=== PATIENT | male | born 1970 | race Two or more races ===

== ENCOUNTER 2022-09-26 09:04 | Emergency (ER) | payer BC, OTHER ==
[~2022-09-26] VITALS: Ht 167.6 cm; Wt 72.6 kg
--- NOTE | 2022-09-26 09:44 | NUR ---
rapid influenza and covid swab taken sent to lab
--- NOTE | 2022-09-26 09:49 | NUR ---
UNABLE TO PROVIDE URINE SAMPLE AT THIS TIME
--- NOTE | 2022-09-26 10:00 | NUR ---
URINE COLLECTED AND SENT TO LAB
[2022-09-26 10:11] LABS: BASOPHILS % (AUTO) 0.4 % (0.0-2.0); EOSINOPHILS % (AUTO) 0.3 % (0.0-6.0); HEMATOCRIT 42 % (39-51); HEMOGLOBIN 14.2 g/dL (13.5-17.5); LYMPHOCYTES # (AUTO) 0.6 K/uL (0.8-4.8); LYMPHOCYTES % (AUTO) 10.5 % (20.0-44.0); MEAN CORPUSCULAR HGB CONC 34 g/dl (31.0-36.0); MEAN CORPUSCULAR VOLUME 98 fL (80-96); MONOCYTES # (AUTO) 0.4 K/uL (0.1-1.30); MONOCYTES % (AUTO) 7.7 % (2.0-12.0); NEUTROPHILS # (AUTO) 4.7 K/uL (1.8-8.9); NEUTROPHILS % (AUTO) 81.1 % (43.0-81.0); PLATELET COUNT (AUTO) 139 K/uL (150-450); RED BLOOD CELL COUNT(AUTO) 4.27 MIL/uL (4.5-6.0); WHITE BLOOD COUNT (AUTO) 5.8 K/uL (4.3-11.0)
[2022-09-26 10:22] LABS: BILIRUBIN,URINE 2+ (NEGATIVE); COLOR,URINE YELLOW (YELLOW); LEUKOCYTE ESTERASE ,URINE NEGATIVE (NEGATIVE); NITRITE, URINE NEGATIVE (NEGATIVE); PROTEIN,URINE 1+ mg/dl (NEGATIVE); UGLUCOSE NEGATIVE (NEGATIVE)
[2022-09-26 10:50] LABS: ALANINE AMINOTRANSFERASE 124 U/L (12-78); ALBUMIN 4.2 g/dL (3.4-5.0); ALCOHOL, BLOOD 90 mg/dL (0-0); ALKALINE PHOSPHATASE 70 U/L (46-116); ASPARTATE AMINOTRANSFERASE 164 U/L (15-37); BILIRUBIN,DIRECT 0.2 mg/dL (0.0-0.2); BILIRUBIN,TOTAL 0.4 mg/dL (0.2-1.0); CALCIUM, SERUM 8.8 mg/dL (8.5-10.1); CARBON DIOXIDE 22 mmol/L (21-32); CHLORIDE 101 mmol/L (98-107); GLUCOSE 108 mg/dL (74-106); POTASSIUM 3.5 mmol/L (3.5-5.1); SODIUM SERUM 138 mmol/L (136-145); TOTAL PROTEIN, SERUM 7.6 g/dL (6.4-8.2); UREA NITROGEN, BLOOD 13 mg/dL (7-18)
[2022-09-26 11:01] LABS: ACETAMINOPHEN 0 ug/ml (10-30)
[2022-09-26 12:14] LABS: BACTERIA,URINE Few /HPF (None Seen); MUCUS,URINE Moderate /LPF (None Seen); RBC,URINE 0-2 /HPF (0-2); SQUAMOUS EPITHELIAL CELL,UR Few /HPF (None Seen); URINE AMORPHOUS URATE Moderate /HPF (None Seen); WBC,URINE 0-2 /HPF (0-3)
--- NOTE | 2022-09-26 13:30 | NUR ---
Patient discharged to home in stable condition. Written and verbal after care instructions given. Patient verbalizes understanding of instruction.
[2022-09-26 17:13] VITALS: BP 135/90
== END 2022-09-26 13:50 | disposition home or self-care (01) ==
LOC: ER 09:27
DX: R07.9 Chest pain, unspecified (principal); M79.10 Myalgia, unspecified site; Z20.822 Contact with and (suspected) exposure to COVID-19; F10.20 Alcohol dependence, uncomplicated; Y90.4 Blood alcohol level of 80-99 mg/100 ml; R82.5 Elevated urine levels of drugs, medicaments and biological substances
CPT/HCPCS: 99285; 93005 ×2; 87804; 71045; 85025; 80048; 80076; 81001; 36415; 84484 ×2; 87426; 80143; 80320; 80307; C9803; G0480

== ENCOUNTER 2023-07-10 04:13 | Emergency (ER) | payer BC, OTHER ==
[2023-07-10] MEDS ORDERED: CHLO25CA22 PO (17:44)
== END 2023-07-10 06:14 | disposition left against medical advice (07) ==
LOC: ER 04:31
DX: Z53.21 Procedure and treatment not carried out due to patient leaving prior to being seen by health care provider (principal)

== ENCOUNTER → 2023-07-10 | Emergency (ER) | payer BC, OTHER ==
[~2023-07-10] VITALS: Ht 167.6 cm; Wt 68.0 kg
[~2023-07-10] MED LIST: CHLO25CA22 PO; CHLORDIAZEPOXIDE HCL 25 MG CAPSULE ONE; CHLORDIAZEPOXIDE HCL 25 MG CAPSULE PO ONE; IV NS 0.9% 1,000 ML IV ONE; LORAZEPAM INJ 2 MG/ML VIAL IV ONE; LORAZEPAM INJ 2 MG/ML VIAL ONE
[2023-07-10 15:49] LABS: BASOPHILS # (AUTO) 0.1 K/uL (0.0-0.2); BASOPHILS % (AUTO) 1.5 % (0.0-2.0); EOSINOPHILS % (AUTO) 0.1 % (0.0-6.0); HEMATOCRIT 43 % (39-51); HEMOGLOBIN 14.4 g/dL (13.5-17.5); LYMPHOCYTES # (AUTO) 1.5 K/uL (0.8-4.8); LYMPHOCYTES % (AUTO) 23.9 % (20.0-44.0); MEAN CORPUSCULAR HEMOGLOBIN 33 PG (26.0-33.0); MEAN CORPUSCULAR HGB CONC 34 g/dl (31.0-36.0); MEAN CORPUSCULAR VOLUME 97 fL (80-96); MONOCYTES # (AUTO) 0.3 K/uL (0.1-1.30); MONOCYTES % (AUTO) 5.3 % (2.0-12.0); NEUTROPHILS # (AUTO) 4.3 K/uL (1.8-8.9); NEUTROPHILS % (AUTO) 69.2 % (43.0-81.0); PLATELET COUNT (AUTO) 220 K/uL (150-450); RED BLOOD CELL COUNT(AUTO) 4.41 MIL/uL (4.5-6.0); RED CELL DISTRIBUTION WIDTH 14.7 % (11.5-15.0); WHITE BLOOD COUNT (AUTO) 6.2 K/uL (4.3-11.0)
[2023-07-10 15:49] LABS: APPEARANCE,URINE CLEAR (CLEAR); BILIRUBIN,URINE 1+ (NEGATIVE); BLOOD, URINE NEGATIVE Ery/uL (NEGATIVE); COLOR,URINE YELLOW (YELLOW); KETONES,URINE 3+ mg/dL (NEGATIVE); LEUKOCYTE ESTERASE ,URINE NEGATIVE (NEGATIVE); NITRITE, URINE NEGATIVE (NEGATIVE); PROTEIN,URINE 2+ mg/dl (NEGATIVE); UGLUCOSE NEGATIVE (NEGATIVE)
[2023-07-10 16:07] LABS: ADD URINE CULTURE NO; AMPHETAMINE, URINE NEGATIVE (NEGATIVE); BARBITURATE, URINE NEGATIVE (NEGATIVE); COCCAINE, URINE NEGATIVE (NEGATIVE); OPIATE, URINE NEGATIVE (NEGATIVE); PHENCYCLIDINE SCREEN,URINE NEGATIVE (NEGATIVE); RBC,URINE 0-2 /HPF (0-2); WBC,URINE 0-2 /HPF (0-3)
[2023-07-10 16:08] LABS: BACTERIA,URINE RARE /HPF (None Seen); MUCUS,URINE Few /LPF (None Seen)
[2023-07-10 16:10] LABS: BENZODIAZEPINE, URINE POSITIVE (NEGATIVE); CANNABINOID, URINE POSITIVE (NEGATIVE)
[2023-07-10 16:18] LABS: CALCIUM, SERUM 9.6 mg/dL (8.5-10.1); CARBON DIOXIDE 16 mmol/L (21-32); CHLORIDE 96 mmol/L (98-107); CREATININE 0.9 mg/dL (0.6-1.3); GLUCOSE 78 mg/dL (74-106); POTASSIUM 3.5 mmol/L (3.5-5.1); SODIUM SERUM 136 mmol/L (136-145); UREA NITROGEN, BLOOD 16 mg/dL (7-18)
[2023-07-10 16:25] LABS: ALANINE AMINOTRANSFERASE 45 U/L (12-78); ALBUMIN 4.5 g/dL (3.4-5.0); ALCOHOL, BLOOD 101 mg/dL (0-10); ALKALINE PHOSPHATASE 81 U/L (46-116); ASPARTATE AMINOTRANSFERASE 50 U/L (15-37); BILIRUBIN,DIRECT 0.3 mg/dL (0.0-0.2); BILIRUBIN,TOTAL 0.9 mg/dL (0.2-1.0); MAGNESIUM 1.7 mg/dL (1.8-2.4); TOTAL PROTEIN, SERUM 8.3 g/dL (6.4-8.2)
[2023-07-10 16:26] LABS: ACETAMINOPHEN 0 ug/ml (10-30); SALICYLATE < 2.8 mg/dL (2.8-20.0)
[2023-07-10 18:09] VITALS: BP 135/85; TEMP 98; O2SAT 98
== END | disposition home or self-care (01) ==
LOC: ER 14:48
DX: F10.139 Alcohol abuse with withdrawal, unspecified (principal); Y90.5 Blood alcohol level of 100-119 mg/100 ml
CPT/HCPCS: 99285; 96374; 96361; 85025; 80048; 80076; 83735; 81001; 36415; 80143; 80320; 80307; J2060; J7030; G0480

== ENCOUNTER 2024-05-14 16:27 | Inpatient (IN) | payer BC, OTHER ==
[~2024-05-14] VITALS: Ht 167.6 cm; Wt 81.6 kg
[~2024-05-14 16:27] MED LIST changes: -CHLORDIAZEPOXIDE HCL 25 MG CAPSULE ONE; -CHLORDIAZEPOXIDE HCL 25 MG CAPSULE PO ONE; -IV NS 0.9% 1,000 ML IV ONE; -LORAZEPAM INJ 2 MG/ML VIAL IV ONE; -LORAZEPAM INJ 2 MG/ML VIAL ONE
[2024-05-14 17:56] LABS: BASOPHILS % (AUTO) 0.2 % (0.0-2.0); HEMATOCRIT 46 % (39-51); HEMOGLOBIN 15.3 g/dL (13.5-17.5); LYMPHOCYTES # (AUTO) 1.4 K/uL (0.8-4.8); LYMPHOCYTES % (AUTO) 9.1 % (20.0-44.0); MEAN CORPUSCULAR HEMOGLOBIN 31 PG (26.0-33.0); MEAN CORPUSCULAR HGB CONC 33 g/dl (31.0-36.0); MEAN CORPUSCULAR VOLUME 94 fL (80-96); MONOCYTES # (AUTO) 0.5 K/uL (0.1-1.30); MONOCYTES % (AUTO) 3.4 % (2.0-12.0); NEUTROPHILS # (AUTO) 13.1 K/uL (1.8-8.9); NEUTROPHILS % (AUTO) 87.3 % (43.0-81.0); PLATELET COUNT (AUTO) 280 K/uL (150-450); RED BLOOD CELL COUNT(AUTO) 4.91 MIL/uL (4.5-6.0); RED CELL DISTRIBUTION WIDTH 14.7 % (11.5-15.0)
[2024-05-14 18:07] LABS: CALCIUM, SERUM 10.1 mg/dL (8.5-10.1); CARBON DIOXIDE 14 mmol/L (21-32); CHLORIDE 96 mmol/L (98-107); CREATININE 1.6 mg/dL (0.6-1.3); GLUCOSE 85 mg/dL (74-106); POTASSIUM 4.1 mmol/L (3.5-5.1); SODIUM SERUM 138 mmol/L (136-145); UREA NITROGEN, BLOOD 27 mg/dL (7-18)
[2024-05-14] MEDS ORDERED: CEFTRIAXONE 1GM BAG (ER ONLY) 50 ML IV ONE (19:58)
[2024-05-14] MEDS: CEFTRIAXONE 1 G in IV D5W 50 ML IV ONE (20:12)
[2024-05-14] MEDS: IV NS 0.9% 1,000 ML BAG IV ONE (20:12)
[2024-05-14] MEDS ORDERED: KETOROLAC TROMETHAMINE 15 MG/ML VIAL ONE (20:14)
[2024-05-14] MEDS: KETOROLAC TROMETHAMINE 15 MG/ML VIAL IV ONE (20:17)
[2024-05-14] MEDS ORDERED: AZITHROMYCIN 500 MG VIAL ONE (20:34)
[2024-05-14 20:46] LABS: APPEARANCE,URINE CLEAR (CLEAR); BILIRUBIN,URINE NEGATIVE (NEGATIVE); BLOOD, URINE NEGATIVE Ery/uL (NEGATIVE); COLOR,URINE YELLOW (YELLOW); KETONES,URINE 1+ mg/dL (NEGATIVE); LEUKOCYTE ESTERASE ,URINE NEGATIVE (NEGATIVE); NITRITE, URINE NEGATIVE (NEGATIVE); PROTEIN,URINE TRACE mg/dl (NEGATIVE); UGLUCOSE NEGATIVE (NEGATIVE); UROBILINOGEN,URINE 0.2 EU/dL (0.2)
[2024-05-14] MEDS: AZITHROMYCIN 500 MG in IV D5W 250 ML IV ONE (20:46)
[2024-05-14] MEDS ORDERED: MAG HYDROX/AL HYDROX/SIMETH 30 ML UDC ONE (20:55)
[2024-05-14] MEDS ORDERED: FAMOTIDINE (20 MG) 20 MG TABLET ONE (20:56)
[2024-05-14] MEDS: FAMOTIDINE (20 MG) 20 MG TABLET PO ONE (20:58)
[2024-05-14] MEDS: MAG HYDROX/AL HYDROX/SIMETH 30 ML UDC PO ONE (20:58)
[2024-05-14 21:13] LABS: ADD URINE CULTURE YES; BACTERIA,URINE 2+ /HPF (None Seen); RBC,URINE NONE SEEN /HPF (0-2); WBC,URINE 0-2 /HPF (0-3)
[2024-05-14 21:14] LABS: FINE GRANULAR CASTS,URINE Few /LPF (None Seen)
[2024-05-14 21:31] LABS: LACTIC ACID 8.7 mmol/L (0.4-2.0)
[2024-05-14] MEDS ORDERED: IOHEXOL-350 100 ML VIAL IV ONE (21:39)
[2024-05-14] MEDS ORDERED: IV NS 0.9% 250 ML IV ONE (21:39)
[2024-05-14] MEDS ORDERED: CT SWABBABLE VALVE TRANS SET 1 EA INFUS.SET MC ONE (21:40)
[2024-05-14] MEDS: OMEPRAZOLE 20 MG CAPSULE.DR PO STA (21:41)
[2024-05-14] MEDS ORDERED: MAGNESIUM HYDROXIDE 30 ML UDC PO PRN (22:30)
[2024-05-14] MEDS ORDERED: Z GUARD REMEDY 4 OZ OINT TP PRN (22:30)
[2024-05-14] MEDS ORDERED: MORPHINE SULFATE INJ 4 MG/ML DISP.SYRIN ONE (22:31)
[2024-05-14] MEDS: ONDANSETRON HCL/PF 4 MG/2 ML VIAL IVP ONE (22:36)
[2024-05-14] MEDS: MORPHINE SULFATE INJ 2 MG/ML DISP.SYRIN IV ONE (22:36)
[2024-05-15] VITALS (7 sets, daily range): BP systolic 124–145; BP diastolic 81–97; TEMP 97.7–98.2; O2SAT 99–100
[2024-05-15 00:10] LABS: BILIRUBIN,DIRECT 0.1 mg/dL (0.0-0.2); BILIRUBIN,TOTAL 0.5 mg/dL (0.2-1.0)
[2024-05-15] MEDS: IV NS 0.9% 1,000 ML IV PRN (01:12)
[2024-05-15] MEDS: ENOXAPARIN SODIUM 40 MG/0.4 ML DISP.SYRIN SQ SCH (01:18)
[2024-05-15] MEDS: ACETAMINOPHEN 325 MG TABLET PO PRN (03:10)
[2024-05-15] MEDS: TRAMADOL HCL 50 MG TABLET PO PRN (05:29)
[2024-05-15] MEDS: PANTOPRAZOLE 40 MG TABLET.DR PO SCH (07:35)
[2024-05-15] MEDS ORDERED: ACET-73 PO (08:52)
[2024-05-15] MEDS ORDERED: GABA600T12 PO (08:52)
[2024-05-15] MEDS ORDERED: CYCL10TA9 PO (08:52)
[2024-05-15] MEDS ORDERED: METH750T3 PO (08:52)
[2024-05-15] MEDS ORDERED: OMEP40CA21 PO (08:52)
[2024-05-15] MEDS ORDERED: METHOCARBAMOL (750MG) 750 MG TABLET PO PRN (11:00)
[2024-05-15] MEDS ORDERED: CYCLOBENZAPRINE 10 MG TABLET PO PRN (11:00)
[2024-05-15] MEDS ORDERED: CHLORDIAZEPOXIDE HCL 25 MG CAPSULE PO SCH (12:00)
[2024-05-15] MEDS: HYDROCODONE/APAP 5/325MG TABLET PO PRN (12:49)
[2024-05-15] MEDS: GABAPENTIN 300 MG CAPSULE PO SCH (13:54)
[2024-05-15] MEDS: ONDANSETRON HCL/PF 4 MG/2 ML VIAL IVP PRN (20:28)
[2024-05-15] MEDS: CEFTRIAXONE 1 G in IV D5W 50 ML IV SCH (20:28)
[2024-05-15] MEDS: AZITHROMYCIN 500 MG in IV D5W 250 ML IV SCH (20:29)
[2024-05-15] MEDS: ZOLPIDEM TARTRATE 5 MG TABLET PO PRN (21:40)
[2024-05-16 04:00] VITALS: BP 142/84; TEMP 97.9; O2SAT 99
[2024-05-16 08:00] VITALS: BP 122/70; TEMP 97.9; O2SAT 99
[2024-05-16 08:35] LABS: CALCIUM, SERUM 8.3 mg/dL (8.5-10.1); CREATININE 0.8 mg/dL (0.6-1.3); POTASSIUM 3.3 mmol/L (3.5-5.1)
[2024-05-16 09:51] LABS: BASOPHILS % (AUTO) 0.5 % (0.0-2.0); EOSINOPHILS % (AUTO) 0.2 % (0.0-6.0); HEMATOCRIT 35 % (39-51); LYMPHOCYTES # (AUTO) 1.5 K/uL (0.8-4.8); LYMPHOCYTES % (AUTO) 25.9 % (20.0-44.0); MEAN CORPUSCULAR HEMOGLOBIN 32 PG (26.0-33.0); MEAN CORPUSCULAR HGB CONC 35 g/dl (31.0-36.0); MEAN CORPUSCULAR VOLUME 93 fL (80-96); MONOCYTES # (AUTO) 0.4 K/uL (0.1-1.30); MONOCYTES % (AUTO) 7.9 % (2.0-12.0); NEUTROPHILS # (AUTO) 3.7 K/uL (1.8-8.9); NEUTROPHILS % (AUTO) 65.5 % (43.0-81.0); PLATELET COUNT (AUTO) 180 K/uL (150-450); RED BLOOD CELL COUNT(AUTO) 3.73 MIL/uL (4.5-6.0); RED CELL DISTRIBUTION WIDTH 14.4 % (11.5-15.0); WHITE BLOOD COUNT (AUTO) 5.7 K/uL (4.3-11.0)
[2024-05-16] MEDS: NICOTINE PATCH (21MG) 21 MG PATCH.TD24 TD SCH (10:09)
[2024-05-16] MEDS: POTASSIUM CHLORIDE 20 MEQ TAB.PRT.SR PO ONE (10:09)
[2024-05-16 16:00] VITALS: BP 152/91; TEMP 98.4; O2SAT 100
[2024-05-16] MEDS: QUETIAPINE FUMARATE 100 MG TABLET PO SCH (21:44)
[2024-05-16] MEDS ORDERED: QUETIAPINE FUMARATE 100 MG TABLET PO SCH (22:00)
[2024-05-17] VITALS: BP 146/92; TEMP 98.8; O2SAT 99
[2024-05-17 07:44] LABS: CALCIUM, SERUM 8.7 mg/dL (8.5-10.1); CREATININE 0.6 mg/dL (0.6-1.3); POTASSIUM 3.2 mmol/L (3.5-5.1)
[2024-05-17 08:00] VITALS: BP 133/91; TEMP 98.4; O2SAT 97
[2024-05-17] MEDS: POTASSIUM CHLORIDE 20 MEQ TAB.PRT.SR PO ONE (09:51)
[2024-05-17 16:00] VITALS: BP 133/99; TEMP 98.2; O2SAT 100
[2024-05-17 18:00] VITALS: BP 133/101; TEMP 98.2; O2SAT 100
[2024-05-17] MEDS: AZITHROMYCIN 250 MG TABLET PO SCH (21:40)
[2024-05-18] VITALS: BP 148/92; TEMP 98.4; O2SAT 99
[2024-05-18 08:00] VITALS: BP 124/90; TEMP 98.1; O2SAT 97
[2024-05-18] MEDS: MAG HYDROX/AL HYDROX/SIMETH 30 ML UDC PO PRN (12:01)
[2024-05-18] MEDS: LOPERAMIDE HCL (2 MG CAP) 2 MG CAPSULE PO PRN (12:46)
== END 2024-05-18 14:25 | disposition home or self-care (01) | DRG 871 ==
LOC: ER 16:35 → MEDSG1 20:56 → TELE-TD 23:02 → TELE1 05-15 08:53 → MEDSG1 05-15 14:46
PROVIDERS: ADMIT Nurse Practitioner Family; ATTEND Nurse Practitioner Acute Care
DX: A41.9 Sepsis, unspecified organism (principal); J15.9 Unspecified bacterial pneumonia; N17.0 Acute kidney failure with tubular necrosis; Z59.00 Homelessness unspecified; E87.20 Acidosis, unspecified; E86.0 Dehydration; Z20.822 Contact with and (suspected) exposure to COVID-19; R56.9 Unspecified convulsions; Z79.899 Other long term (current) drug therapy; I10 Essential (primary) hypertension; Z98.890 Other specified postprocedural states; F10.10 Alcohol abuse, uncomplicated; Y90.0 Blood alcohol level of less than 20 mg/100 ml; F17.200 Nicotine dependence, unspecified, uncomplicated; F41.1 Generalized anxiety disorder; G47.00 Insomnia, unspecified; K21.9 Gastro-esophageal reflux disease without esophagitis; Z91.013 Allergy to seafood
CPT/HCPCS: 36415; 71045-TC; 80048-TC; 81001; 82247-TC; 82248-TC; 83605-TC; 84484-TC; 85025-TC; 87040-TC; 87081-TC; 87086-TC; 97110-TC; 97116-TC; 97530-TC; A4223; G0378; J0456; J0696; J1650; J1885; J2270; J2405; J7030; J7050; J7060; Q9967